=== PATIENT | female | born 2000 | race Caucasian/White ===

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

== ENCOUNTER → 2020-01-13 | Outpatient (REF) | payer OTHER ==
[~2020-01-13] MED LIST changes: +ACET-683 PO; +IBUP80TA PO; +RANI1SYP PO
[2020-01-13 13:51] LABS: HEMATOCRIT 38.4 % (36.0-47.0); HEMOGLOBIN 12.4 g/dl (12.0-15.5); MEAN CORPUSCULAR HEMOGLOBIN 26.1 pg (27.0-33.0); MEAN CORPUSCULAR HGB CONC 32.3 g/dl (32.0-36.5); MEAN CORPUSCULAR VOLUME 80.7 fl (80.0-96.0); PLATELET COUNT, AUTOMATED 182 10^3/uL (150-450); RED BLOOD COUNT 4.76 10^6/uL (4.00-5.40); WHITE BLOOD COUNT 6.8 10^3/uL (4.0-10.0)
[2020-01-13 14:06] LABS: ALT/SGPT 18 U/L (12-78); BILIRUBIN,TOTAL 0.3 MG/DL (0.2-1.0); CREATININE FOR GFR 0.54 MG/DL (0.55-1.30); LDH LACTATE DEHYDROGENASE 140 U/L (84-246); URIC ACID 2.5 MG/DL (2.6-6.0)
[2020-01-13 14:10] LABS: CREATININE,RANDOM URINE 77.7 MG/DL; TOTAL PROTEIN,RANDOM URINE 10.9 MG/DL (0.0-12.0)
[2020-01-13 14:42] LABS: HEPATITIS C VIRUS ABY INDEX 0.1 INDEX (<0.8); HIV 1&2 SCREEN CENTAUR NEGATIVE (NEGATIVE)
== END ==
LOC: M PLALAB 11:32
PROVIDERS: ATTEND Advanced Practice Midwife
DX: Z34.91 Encounter for supervision of normal pregnancy, unspecified, first trimester (principal)

== ENCOUNTER → 2020-03-23 | Outpatient (CLI) | payer BC ==
--- NOTE | 2020-03-24 09:00 | REP ---
INDICATION: ANATOMY COMPARISON: None. TECHNIQUE: Transabdominal obstetrical ultrasound with color Doppler evaluation. FINDINGS: Examination demonstrates a single live intrauterine in variable presentation. motion is identified by technologist. Placenta is noted posterior and grade 1 without evidence for placenta previa or abruption. Amniotic fluid volume is normal. Cervix measures 4.0 cm in length and appears closed. Linear echogenic structure along the left side of the uterus and adjacent to the placenta may represent small uterine synechia.. Gestational age by current measurements 19 weeks 6 days with PEDRO 08/11/2020. FHR equals 149 beats per minute. BPD: 4.5 cm 19 weeks 4 days HC: 17.2 cm 19 weeks 5 days AC: 14.6 cm there is 19 weeks 6 days FL: 3.2 cm 19 weeks 6 days HL: 3.1 cm 20 weeks 2 days HC/AC: 1.18 Estimated weight 317 grams (11thpercentile). Anatomical assessment demonstrates normal structures including cranium, choroid plexus, cavum, cerebellum/posterior fossa, facial features, lungs, four-chamber heart/ventricular outflow tracts, diaphragm, stomach, cord insertion/three-vessel cord, kidneys/bladder, spine, and extremities. IMPRESSION: Single live intrauterine in variable presentation demonstrating appropriate estimated weight. Anatomical assessment is complete and normal. Technologist raises the possibility of small uterine synechia for which follow-up may be warranted. <Electronically signed by Gilles Wall > 03/24/20 [id number]
== END ==
LOC: M WHC 13:07
PROVIDERS: ATTEND Advanced Practice Midwife
DX: O10.012 Pre-existing essential hypertension complicating pregnancy, second trimester (principal); Z3A.19 19 weeks gestation of pregnancy

== ENCOUNTER → 2020-04-20 | Outpatient (CLI) | payer BC ==
--- NOTE | 2020-04-20 09:39 | REP ---
INDICATION: HYPERTENSION,GROWTH,VALERIY COMPARISON: 03/23/2020 TECHNIQUE: Transabdominal obstetrical ultrasound with color Doppler evaluation. FINDINGS: Examination demonstrates a single live intrauterine in cephalic presentation. motion is identified by technologist. Placenta is noted posterior and grade 1 without evidence for placenta previa or abruption. Amniotic fluid volume is normal. Cervix measures 3.8 cm in length and appears closed.. Gestational age by LMP 24 weeks 5 days with PEDRO 08/05/2020. Gestational age by current measurements 23 weeks 6 days with PEDRO 08/11/2020. FHR equals 144 beats per minute. BPD: 5.8 cm 23 weeks 6 days HC: 21.8 cm 23 weeks 6 days AC: 18.7 cm 23 weeks 3 days FL: 4.3 cm 24 weeks 1 day HL: 4.0 cm 24 weeks 1 day HC/AC: 1.17 Estimated weight 625 grams (10thpercentile). IMPRESSION: Single live intrauterine in cephalic presentation with normal interval growth and estimated weight. <Electronically signed by Gilles Wall > 04/20/20 [id number]
== END ==
LOC: M WHC 08:51
PROVIDERS: ATTEND Advanced Practice Midwife
DX: O10.012 Pre-existing essential hypertension complicating pregnancy, second trimester (principal)

== ENCOUNTER → 2020-05-06 | Outpatient (REF) | payer OTHER ==
[2020-05-06 13:21] LABS: HEMATOCRIT 35.5 % (36.0-47.0); HEMOGLOBIN 11.2 g/dl (12.0-15.5); MEAN CORPUSCULAR HEMOGLOBIN 26.4 pg (27.0-33.0); MEAN CORPUSCULAR HGB CONC 31.5 g/dl (32.0-36.5); MEAN CORPUSCULAR VOLUME 83.5 fl (80.0-96.0); PLATELET COUNT, AUTOMATED 204 10^3/uL (150-450); RED BLOOD COUNT 4.25 10^6/uL (4.00-5.40); WHITE BLOOD COUNT 8.3 10^3/uL (4.0-10.0)
== END ==
LOC: M PLALAB 09:54
PROVIDERS: ATTEND Advanced Practice Midwife
DX: O10.012 Pre-existing essential hypertension complicating pregnancy, second trimester (principal)

== ENCOUNTER → 2020-05-21 | Outpatient (CLI) | payer BC ==
--- NOTE | 2020-05-21 18:12 | REP ---
INDICATION: HYPERTENSION,GROWTH. growth study. PEDRO August 05, 2020. COMPARISON: Comparison exam April 20, 2020.. TECHNIQUE: Transabdominal obstetric sonography. FINDINGS: Scanning through the gravid uterus demonstrates a viable single intrauterine gestation in cephalic lie. motion is observed and heart rate is recorded at 144 beats per minute. A posterior placenta is seen, grade 2, without evidence of placenta previa. Closed cervical length is measured at 3.2 cm transabdominally. No extrauterine abnormality is observed. Amniotic fluid is subjectively normal. VALERIY is normal at 14.8 cm.. . Biometry chart: BPD 7.1 cm, 28 weeks 3 days Head circumference 26.9 cm, 29 weeks 3 days Abdominal circumference 24.6 cm, 28 weeks 6 days Femur length 5.3 cm, 28 weeks 0 days Humeral length 4.6 cm, 27 weeks 0 days HC AC ratio normal 1.09 Cephalic index normal 0.72 Estimated weight 1250 g, 2 lb 12 oz, 20th percentile for 29 weeks 1 day IMPRESSION: Viable single intrauterine gestation at 28 weeks 2 days by today's composite sonographic criteria. PEDRO by today's sonography August 11, 2020. No complication identified. Expected gestational age estimate based on PEDRO of August 05, 2020 is 29 weeks 1 day. Appropriate interval growth. <Electronically signed by Luke Villatoro > 05/21/20 [id number]
== END ==
LOC: M WHC 10:58
PROVIDERS: ATTEND Advanced Practice Midwife
DX: O10.013 Pre-existing essential hypertension complicating pregnancy, third trimester (principal)

== ENCOUNTER 2020-06-01 19:30 | Outpatient (CLI) | payer BC ==
[~2020-06-01] VITALS: Ht 157.5 cm; Wt 85.1 kg
[2020-06-01 19:52] VITALS: BP 138/85
[2020-06-01] MEDS ORDERED: BABY ASP (20:07)
[2020-06-01] MEDS ORDERED: LABE200T32 PO (20:07)
[2020-06-01] MEDS ORDERED: asprin (20:07)
[2020-06-01 20:31] LABS: HEMATOCRIT 33.3 % (36.0-47.0); HEMOGLOBIN 10.6 g/dl (12.0-15.5); MEAN CORPUSCULAR HEMOGLOBIN 25.1 pg (27.0-33.0); MEAN CORPUSCULAR HGB CONC 31.8 g/dl (32.0-36.5); MEAN CORPUSCULAR VOLUME 78.9 fl (80.0-96.0); PLATELET COUNT, AUTOMATED 196 10^3/uL (150-450); RED BLOOD COUNT 4.22 10^6/uL (4.00-5.40); WHITE BLOOD COUNT 8.5 10^3/uL (4.0-10.0)
[2020-06-01 20:57] LABS: TOTAL PROTEIN,RANDOM URINE 24.4 MG/DL (0.0-12.0)
[2020-06-01 20:59] LABS: ALT/SGPT 25 U/L (12-78); BILIRUBIN,TOTAL 0.4 MG/DL (0.2-1.0); CREATININE FOR GFR 0.46 MG/DL (0.55-1.30); GLOMERULAR FILTRATION RATE > 60.0 (>60); LDH LACTATE DEHYDROGENASE 206 U/L (84-246)
--- NOTE | 2020-06-01 21:15 | IPNPDOC ---
Obstetrical Progress Note Date of Service Jun 01, 2020 Subjective 20 yo at 30 5/7 weeks presents feeling dizzy and seeing spots today. She was at work. Her is significant for HTN, for which she takes Labetalol. Objective Vital Signs Date Time Temp Pulse Resp B/P (MAP) Pulse Ox O2 Delivery O2 Flow Rate FiO2 06/01/20 19:52 97.8 103 18 138/85 (102) Assessment Variability: Moderate Accelerations: Positive Decelerations: None Heart Rate Tracing: Category I Tocometer Contractions: No Assessment and Plan Status: Reassuring Additional Comments 20 yo at 30 5/7 weeks with HTN, no evidence of preeclampsia Continue Labetalol 200 mg BID Pt may need to stop work sooner than she expected due to HTN Keep office appt on 06/03/20 RICK HALL MD Jun 01, 2020 21:15
== END 2020-06-01 21:20 | disposition home or self-care (01) ==
LOC: M LDO 19:30
PROVIDERS: ATTEND Specialist
DX: O13.3 Gestational [pregnancy-induced] hypertension without significant proteinuria, third trimester (principal); R51.9 Headache, unspecified; R42 Dizziness and giddiness; Z3A.30 30 weeks gestation of pregnancy
CPT/HCPCS: 36415; 59025; 82247; 82565; 82570; 83615; 84156; 84450; 84460; 84550; 85027; G0378; G0463

== ENCOUNTER → 2020-06-18 | Outpatient (CLI) | payer BC ==
[~2020-06-18] MED LIST changes: +BABY ASP; +asprin
--- NOTE | 2020-06-18 12:19 | REP ---
INDICATION: HYPERTENSION,GROWTH. PEDRO August 05, 2020. COMPARISON: Comparison study May 21, 2020.. TECHNIQUE: Transabdominal obstetric sonography. FINDINGS: Scanning through the gravid uterus demonstrates a viable single intrauterine gestation in cephalic lie. motion is observed and heart rate is recorded at 126 beats per minute. A posterior placenta is seen, grade 3, without evidence of placenta previa. Closed cervical length is measured at 3.5 cm transabdominally. No extrauterine abnormality is observed. Amniotic fluid is subjectively normal. VALERIY is normal at 17.6 cm.. anatomic survey is not performed with this exam.. Biometry chart: BPD 8.1 cm, 32 weeks 3 days Head circumference 29.9 cm, 33 weeks 1 day Abdominal circumference 28.5 cm, 32 weeks 4 days Femur length 6.4 cm, 32 weeks 6 days Humeral length 5.3 cm, 30 weeks 5 days HC AC ratio normal 1.05 Cephalic index normal 0.75 Estimated weight 2028 g, 4 lb 7 oz, 28th percentile for 33 weeks 1 day IMPRESSION: Viable single intrauterine gestation at 32 weeks 2 days by today's composite sonographic criteria. PEDRO by today's sonography August 11, 2020. No complication identified. Expected gestational age estimate based on prior sonography is 33 weeks 1 day. PEDRO by prior sonography August 05, 2020. Appropriate interval growth. <Electronically signed by Luke Villatoro > 06/18/20 [id number]
== END ==
LOC: M WHC 10:51
PROVIDERS: ATTEND Advanced Practice Midwife
DX: O10.012 Pre-existing essential hypertension complicating pregnancy, second trimester (principal); Z3A.32 32 weeks gestation of pregnancy

== ENCOUNTER → 2021-09-06 | Outpatient (REF) | payer OTHER ==
[~2021-09-06] MED LIST changes: +LABE200T3 PO; -LABE200T32 PO
[2021-09-06 15:49] LABS: GC DNA AMPLIFICATION NEGATIVE (NEGATIVE)
== END ==
LOC: M SFHCWAGY 13:38 → EDUNIT# 13:38
PROVIDERS: ATTEND Obstetrics & Gynecology
DX: Z12.4 Encounter for screening for malignant neoplasm of cervix (principal)
CPT/HCPCS: 87661; 87810; 87850; G0123

== ENCOUNTER 2022-04-05 10:23 | Emergency (ER) | payer BC, OTHER ==
[~2022-04-05] VITALS: Ht 157.5 cm; Wt 62.9 kg
[~2022-04-05 10:23] MED LIST changes: -LABE200T3 PO; +LABE200T5 PO
[2022-04-05 12:06] LABS: BASO % 0.5 % (0.0-1.0); EOS % 0.4 % (0.0-3.0); HEMATOCRIT 44.2 % (36.0-47.0); HEMOGLOBIN 13.8 g/dl (12.0-15.5); LYMPH # 1.2 10^3/uL (1.5-5.0); LYMPH % 22.1 % (24.0-44.0); MEAN CORPUSCULAR HEMOGLOBIN 25.8 pg (27.0-33.0); MEAN CORPUSCULAR HGB CONC 31.2 g/dl (32.0-36.5); MEAN CORPUSCULAR VOLUME 82.8 fl (80.0-96.0); MONO # 0.5 10^3/uL (0.0-0.8); MONO % 8.5 % (2.0-8.0); NEUTROPHILS # 3.8 10^3/uL (1.5-8.5); NEUTROPHILS % 68.3 % (36.0-66.0); PLATELET COUNT, AUTOMATED 168 10^3/uL (150-450); RED BLOOD COUNT 5.34 10^6/uL (4.00-5.40); WHITE BLOOD COUNT 5.5 10^3/uL (4.0-10.0)
[2022-04-05 12:47] LABS: LIPASE 50 U/L (12-53)
[2022-04-05 12:49] LABS: ALBUMIN 4.3 G/DL (3.2-5.2); ALKALINE PHOSPHATASE 63 U/L (46-116); ALT/SGPT 15 U/L (7.0-40); AST/SGOT 17 U/L (<34); BILIRUBIN,DIRECT 0.1 MG/DL (<0.4); BILIRUBIN,TOTAL 0.3 MG/DL (0.3-1.2); BLOOD UREA NITROGEN 7 MG/DL (9-23); CALCIUM LEVEL 9.3 MG/DL (8.5-10.1); CARBON DIOXIDE LEVEL 28 MMOL/L (20-31); CHLORIDE LEVEL 107 MMOL/L (98-107); GLOMERULAR FILTRATION RATE > 60.0 (>60); GLUCOSE, FASTING 95 MG/DL (60-100); POTASSIUM SERUM 4.4 MMOL/L (3.5-5.1); SODIUM LEVEL 141 MMOL/L (136-145); TOTAL PROTEIN 7.3 G/DL (5.7-8.2)
[2022-04-05 12:56] LABS: HCG, SERUM QUALITATIVE NEGATIVE (NEGATIVE)
[2022-04-05] MEDS ORDERED: NS 1,000 ML IV ONE (17:00)
[2022-04-05] MEDS ORDERED: ISOVUE-370 76% 100ML VIAL As Ordered ONE (17:03)
[2022-04-05] MEDS ORDERED: KETOROLAC 30 MG/ML 1ML VIAL IV ONE (17:45)
[2022-04-05] MEDS ORDERED: ONDANSETRON 4MG 2ML VIAL IV ONE (17:45)
[2022-04-05] MEDS ORDERED: AMOX875T2 PO (18:14)
[2022-04-05] MEDS ORDERED: ONDA4TAB6 PO (18:15)
[2022-04-05 18:29] VITALS: BP 136/83
== END 2022-04-05 19:02 | disposition home or self-care (01) ==
LOC: M ED 10:23
DX: K50.90 Crohn's disease, unspecified, without complications (principal); K59.00 Constipation, unspecified; Z88.9 Allergy status to unspecified drugs, medicaments and biological substances; Z91.030 Bee allergy status; Z91.040 Latex allergy status; Z91.048 Other nonmedicinal substance allergy status; Z79.2 Long term (current) use of antibiotics; Z79.810 Long term (current) use of selective estrogen receptor modulators (SERMs); Z79.899 Other long term (current) drug therapy

== ENCOUNTER 2022-06-07 08:32 | Day surgery (SDC) | payer BC, OTHER ==
[~2022-06-07] VITALS: Ht 154.9 cm; Wt 61.6 kg
[~2022-06-07 08:32] MED LIST changes: +ALBU6.7H6 INH; +AMOX875T2 PO; +EPIP0.3I2 IM; +LIDOCAINE 2% 100MG/5ML SDV (FOR ANES.) As Ordered ONE; +NS 1,000 ML IV ONE; +propofoL 200 MG/20 ML VIAL As Ordered ONE
[2022-06-07] MEDS ORDERED: propofoL 200 MG/20 ML VIAL As Ordered ONE (09:43)
[2022-06-07 09:50] VITALS: BP 120/69
== END 2022-06-07 10:00 | disposition home or self-care (01) ==
LOC: M OPP 08:32
PROVIDERS: ATTEND Surgery
DX: K63.89 Other specified diseases of intestine (principal); K59.00 Constipation, unspecified; J45.909 Unspecified asthma, uncomplicated; Z79.3 Long term (current) use of hormonal contraceptives; Z79.51 Long term (current) use of inhaled steroids; Z91.030 Bee allergy status; Z91.048 Other nonmedicinal substance allergy status

== ENCOUNTER 2023-04-01 12:03 | Emergency (ER) | payer BC, OTHER ==
[~2023-04-01] VITALS: Ht 157.5 cm; Wt 56.9 kg
[~2023-04-01 12:03] MED LIST changes: -LIDOCAINE 2% 100MG/5ML SDV (FOR ANES.) As Ordered ONE; -NS 1,000 ML IV ONE; -propofoL 200 MG/20 ML VIAL As Ordered ONE
[2023-04-01] MEDS ORDERED: NS 1,000 ML IV ONE (12:35)
[2023-04-01] MEDS ORDERED: METOCLOPRAMIDE INJ 10MG/2ML VIAL IV ONE (12:35)
[2023-04-01 12:47] LABS: BASO % 0.2 % (0.0-1.0); HEMOGLOBIN 13.6 g/dl (12.0-15.5); LYMPH # 0.9 10^3/uL (1.5-5.0); LYMPH % 11.2 % (24.0-44.0); MEAN CORPUSCULAR HEMOGLOBIN 25.8 pg (27.0-33.0); MEAN CORPUSCULAR HGB CONC 32.4 g/dl (32.0-36.5); MEAN CORPUSCULAR VOLUME 79.7 fl (80.0-96.0); MONO # 0.4 10^3/uL (0.0-0.8); MONO % 4.6 % (2.0-8.0); NEUTROPHILS # 6.8 10^3/uL (1.5-8.5); NEUTROPHILS % 83.8 % (36.0-66.0); PLATELET COUNT, AUTOMATED 224 10^3/uL (150-450); RED BLOOD COUNT 5.27 10^6/uL (4.00-5.40); WHITE BLOOD COUNT 8.1 10^3/uL (4.0-10.0)
[2023-04-01 13:11] LABS: ALBUMIN 4.6 G/DL (3.2-5.2); BILIRUBIN,DIRECT 0.2 MG/DL (<0.4); BILIRUBIN,TOTAL 0.5 MG/DL (0.3-1.2); TOTAL PROTEIN 7.4 G/DL (5.7-8.2)
[2023-04-01] MEDS ORDERED: METO5TAB2 PO (14:16)
[2023-04-01] MEDS ORDERED: DICY-61 PO (14:16)
[2023-04-01] MEDS ORDERED: DICYCLOMINE 10 MG CAP PO ONE (14:20)
[2023-04-01 14:26] VITALS: BP 112/66; TEMP 97.6; O2SAT 98
== END 2023-04-01 14:29 | disposition home or self-care (01) ==
LOC: M ED 12:03
DX: R10.9 Unspecified abdominal pain (principal); R11.2 Nausea with vomiting, unspecified; J45.909 Unspecified asthma, uncomplicated; Z91.030 Bee allergy status; Z91.048 Other nonmedicinal substance allergy status
CPT/HCPCS: 74018; 80047; 80076; 81001; 83690; 84702; 85025; 96361; 96374; 99284; J2765

== ENCOUNTER → 2023-06-05 | Outpatient (REF) | payer OTHER ==
[~2023-06-05] MED LIST changes: +DICY-61 PO; +METO5TAB2 PO
[2023-06-05 16:34] LABS: Trichomonas vaginalis (AMP) NOT DETECTED (NEGATIVE)
[2023-06-05 16:58] LABS: GC DNA AMPLIFICATION NEGATIVE (NEGATIVE)
== END ==
LOC: M SFHCWAGY 14:57
PROVIDERS: ATTEND Obstetrics & Gynecology
DX: N92.6 Irregular menstruation, unspecified (principal)

== ENCOUNTER 2023-06-24 13:46 | Emergency (ER) | payer BC, OTHER ==
[~2023-06-24] VITALS: Ht 157.5 cm; Wt 59.3 kg
[2023-06-24] MEDS: NAPROXEN 250 MG TAB PO ONE (15:43)
[2023-06-24 16:17] VITALS: BP 117/75; TEMP 97.4; O2SAT 100
== END 2023-06-24 16:19 | disposition home or self-care (01) ==
LOC: M ED 13:46
DX: S63.501A Unspecified sprain of right wrist, initial encounter (principal); S60.211A Contusion of right wrist, initial encounter; S60.212A Contusion of left wrist, initial encounter; W01.0XXA Fall on same level from slipping, tripping and stumbling without subsequent striking against object, initial encounter; Y92.009 Unspecified place in unspecified non-institutional (private) residence as the place of occurrence of the external cause; Y93.89 Activity, other specified; Y99.9 Unspecified external cause status; I10 Essential (primary) hypertension; F17.290 Nicotine dependence, other tobacco product, uncomplicated

== ENCOUNTER 2023-09-03 12:11 | Emergency (ER) | payer BC, SELFPAY ==
[~2023-09-03] VITALS: Ht 154.9 cm; Wt 58.5 kg
[~2023-09-03 12:11] MED LIST changes: +ONDA-282 PO; -ONDA4TAB6 PO
[2023-09-03] MEDS ORDERED: LEXA1TAB2 (12:20)
[2023-09-03] MEDS ORDERED: ARIP1TAB6 (12:20)
[2023-09-03] MEDS ORDERED: PSEU30TA87 PO (13:26)
[2023-09-03] MEDS ORDERED: OXYM15SP2 (13:26)
[2023-09-03] MEDS ORDERED: IBUP-1022 PO (13:26)
[2023-09-03 13:32] VITALS: BP 107/79; TEMP 97.2; O2SAT 99
== END 2023-09-03 13:34 | disposition home or self-care (01) ==
LOC: M ED 12:11
DX: H92.03 Otalgia, bilateral (principal); H65.02 Acute serous otitis media, left ear; J45.909 Unspecified asthma, uncomplicated; I10 Essential (primary) hypertension; F41.9 Anxiety disorder, unspecified; Z91.030 Bee allergy status; Z91.048 Other nonmedicinal substance allergy status; Z79.2 Long term (current) use of antibiotics; Z79.899 Other long term (current) drug therapy

== ENCOUNTER 2023-11-24 10:48 | Emergency (ER) | payer BC, SELFPAY ==
[~2023-11-24] VITALS: Ht 157.5 cm; Wt 63.3 kg
[~2023-11-24 10:48] MED LIST changes: +ARIP1TAB6; +LEXA1TAB2; +OXYM15SP2; +PSEU30TA87 PO
[2023-11-24 11:59] LABS: BASO % 0.6 % (0.0-1.0); EOS # 0.1 10^3/uL (0.0-0.5); EOS % 1.1 % (0.0-3.0); HEMATOCRIT 39.1 % (36.0-47.0); HEMOGLOBIN 12.2 g/dl (12.0-15.5); LYMPH # 1.7 10^3/uL (1.5-5.0); MEAN CORPUSCULAR HEMOGLOBIN 24.4 pg (27.0-33.0); MEAN CORPUSCULAR HGB CONC 31.2 g/dl (32.0-36.5); MEAN CORPUSCULAR VOLUME 78.4 fl (80.0-96.0); MONO # 0.5 10^3/uL (0.0-0.8); MONO % 9.5 % (2.0-8.0); NEUTROPHILS # 3.1 10^3/uL (1.5-8.5); NEUTROPHILS % 56.8 % (36.0-66.0); PLATELET COUNT, AUTOMATED 184 10^3/uL (150-450); RED BLOOD COUNT 4.99 10^6/uL (4.00-5.40); WHITE BLOOD COUNT 5.4 10^3/uL (4.0-10.0)
[2023-11-24 12:42] LABS: ALBUMIN 4.3 G/DL (3.2-5.2); BILIRUBIN,DIRECT 0.1 MG/DL (<0.4); BILIRUBIN,TOTAL 0.4 MG/DL (0.3-1.2); TOTAL PROTEIN 7.2 G/DL (5.7-8.2)
[2023-11-24 12:59] LABS: HCG, SERUM QUANTITATIVE 2125.5 MIU/ML (<4.2)
[2023-11-24] MEDS: NS 1,000 ML IV ONE (13:34)
[2023-11-24] MEDS: ACETAMINOPHEN *IV* 1,000 MG in IV 1 EA IV ONE (13:34)
[2023-11-24] MEDS: ONDANSETRON 4MG 2ML VIAL IV ONE (13:35)
[2023-11-24 16:19] LABS: Trichomonas vaginalis (AMP) NOT DETECTED (NEGATIVE)
[2023-11-24 16:43] LABS: GC DNA AMPLIFICATION NEGATIVE (NEGATIVE)
[2023-11-24] MEDS ORDERED: CEPH500C PO (16:57)
[2023-11-24] MEDS ORDERED: MONI4CRE3 PV (16:57)
[2023-11-24 17:38] VITALS: BP 110/73; TEMP 97.6; O2SAT 98
== END 2023-11-24 17:40 | disposition home or self-care (01) ==
LOC: M ED 10:48
DX: N30.00 Acute cystitis without hematuria (principal); N76.0 Acute vaginitis; F31.9 Bipolar disorder, unspecified; F41.0 Panic disorder [episodic paroxysmal anxiety]; Z91.030 Bee allergy status; Z91.048 Other nonmedicinal substance allergy status; Z79.2 Long term (current) use of antibiotics; Z79.899 Other long term (current) drug therapy
CPT/HCPCS: 36415; 80047; 80076; 81001; 83690; 84702; 85025; 87086; 87210; 87486; 87581; 87633; 87661; 87798; 87810; 87850; 96374; 96375; 99284; J0131; J2405

== ENCOUNTER → 2023-12-24 | Outpatient (REF) | payer BC ==
[~2023-12-24] MED LIST changes: +CEPH500C PO; +MONI4CRE3 PV
== END ==
LOC: M PLALAB 14:26
PROVIDERS: ATTEND Advanced Practice Midwife
DX: Z34.81 Encounter for supervision of other normal pregnancy, first trimester (principal); Z53.9 Procedure and treatment not carried out, unspecified reason

== ENCOUNTER → 2024-01-23 | Outpatient (CLI) | payer BC ==
[2024-01-23 13:36] LABS: HEMATOCRIT 34.9 % (36.0-47.0); MEAN CORPUSCULAR HEMOGLOBIN 24.3 pg (27.0-33.0); MEAN CORPUSCULAR HGB CONC 31.5 g/dl (32.0-36.5); MEAN CORPUSCULAR VOLUME 77.2 fl (80.0-96.0); PLATELET COUNT, AUTOMATED 187 10^3/uL (150-450); RED BLOOD COUNT 4.52 10^6/uL (4.00-5.40); WHITE BLOOD COUNT 6.4 10^3/uL (4.0-10.0)
[2024-01-23 13:53] LABS: URIC ACID 2.6 MG/DL (3.1-7.8)
[2024-01-23 13:55] LABS: LDH LACTATE DEHYDROGENASE 129 U/L (120-246)
[2024-01-23 13:57] LABS: ALT/SGPT 13 U/L (7.0-40); AST/SGOT < 8 U/L (<34); BILIRUBIN,TOTAL 0.3 MG/DL (0.3-1.2); CREATININE FOR GFR 0.52 MG/DL (0.55-1.30); GLOMERULAR FILTRATION RATE > 60.0 (>60)
[2024-01-23 14:34] LABS: CREATININE,RANDOM URINE 97.4 MG/DL
[2024-01-23 15:26] LABS: GC DNA AMPLIFICATION NEGATIVE (NEGATIVE); TOTAL PROTEIN,RANDOM URINE 17.9 MG/DL (0.0-14.0)
[2024-01-23 16:30] LABS: HIV 1&2 SCREEN NEGATIVE (NEGATIVE)
[2024-01-23 17:45] LABS: HEPATITIS C VIRUS ABY INDEX < 0.02 INDEX (<0.8)
== END ==
LOC: M PLALAB 10:10
PROVIDERS: ATTEND Advanced Practice Midwife
DX: Z34.81 Encounter for supervision of other normal pregnancy, first trimester (principal)

== ENCOUNTER 2024-02-17 19:23 | Emergency (ER) | payer BC ==
[~2024-02-17] VITALS: Ht 162.6 cm; Wt 69.5 kg
[2024-02-17 21:29] LABS: BASO % 0.2 % (0.0-1.0); EOS % 0.5 % (0.0-3.0); HEMATOCRIT 33.7 % (36.0-47.0); HEMOGLOBIN 10.9 g/dl (12.0-15.5); LYMPH # 1.6 10^3/uL (1.5-5.0); LYMPH % 25.5 % (24.0-44.0); MEAN CORPUSCULAR HEMOGLOBIN 24.9 pg (27.0-33.0); MEAN CORPUSCULAR HGB CONC 32.3 g/dl (32.0-36.5); MEAN CORPUSCULAR VOLUME 76.9 fl (80.0-96.0); MONO # 0.6 10^3/uL (0.0-0.8); MONO % 9.2 % (2.0-8.0); NEUTROPHILS # 3.9 10^3/uL (1.5-8.5); NEUTROPHILS % 64.3 % (36.0-66.0); PLATELET COUNT, AUTOMATED 185 10^3/uL (150-450); RED BLOOD COUNT 4.38 10^6/uL (4.00-5.40); WHITE BLOOD COUNT 6.1 10^3/uL (4.0-10.0)
[2024-02-17] MEDS: ACETAMINOPHEN *IV* 1,000 MG in IV 1 EA IV ONE (21:31)
[2024-02-17] MEDS: METOCLOPRAMIDE INJ 10MG/2ML VIAL IV ONE (21:31)
[2024-02-17] MEDS: NS 500 ML IV ONE (21:31)
[2024-02-17 21:53] LABS: ALBUMIN 3.2 G/DL (3.2-5.2); ALKALINE PHOSPHATASE 58 U/L (35-104); ALT/SGPT < 9 U/L (7.0-40); AST/SGOT 14 U/L (<34); BILIRUBIN,DIRECT < 0.1 MG/DL (<0.4); BILIRUBIN,TOTAL 0.3 MG/DL (0.3-1.2); TOTAL PROTEIN 6.3 G/DL (5.7-8.2)
[2024-02-17 22:07] LABS: HCG, SERUM QUANTITATIVE 12024.9 MIU/ML (<4.2)
[2024-02-17 23:18] VITALS: BP 112/72; TEMP 97.5; O2SAT 98
== END 2024-02-17 23:18 | disposition home or self-care (01) ==
LOC: M ED 19:23
DX: O21.9 Vomiting of pregnancy, unspecified (principal); O99.352 Diseases of the nervous system complicating pregnancy, second trimester; R51.9 Headache, unspecified; I10 Essential (primary) hypertension; J45.909 Unspecified asthma, uncomplicated; Z91.030 Bee allergy status; Z88.8 Allergy status to other drugs, medicaments and biological substances; Z91.048 Other nonmedicinal substance allergy status; Z79.1 Long term (current) use of non-steroidal anti-inflammatories (NSAID); Z79.899 Other long term (current) drug therapy; Z3A.17 17 weeks gestation of pregnancy
CPT/HCPCS: 80047; 80076; 81001; 84702; 85025; 87086; 87486; 87581; 87633; 87798; 93041; 94760; 96365; 96375; 99284; J0131; J2765

== ENCOUNTER → 2024-03-17 | Outpatient (CLI) | payer BC | LOC: M RAD 06:33 | PROVIDERS: ATTEND Nurse Practitioner Family | DX: O10.012 Pre-existing essential hypertension complicating pregnancy, second trimester (principal); Z3A.21 21 weeks gestation of pregnancy; O32.2XX0 Maternal care for transverse and oblique lie, not applicable or unspecified; O28.3 Abnormal ultrasonic finding on antenatal screening of mother ==

== ENCOUNTER → 2024-04-22 | Outpatient (CLI) | payer BC ==
[2024-04-22 15:03] LABS: HEMATOCRIT 32.8 % (36.0-47.0); HEMOGLOBIN 10.2 g/dl (12.0-15.5); MEAN CORPUSCULAR HEMOGLOBIN 24.1 pg (27.0-33.0); MEAN CORPUSCULAR HGB CONC 31.1 g/dl (32.0-36.5); MEAN CORPUSCULAR VOLUME 77.5 fl (80.0-96.0); PLATELET COUNT, AUTOMATED 211 10^3/uL (150-450); RED BLOOD COUNT 4.23 10^6/uL (4.00-5.40); WHITE BLOOD COUNT 9.4 10^3/uL (4.0-10.0)
[2024-04-22 15:04] LABS: GLUCOSE CHALLENGE TEST 1 HOUR 99 MG/DL (LESS THAN 140)
[2024-04-22 15:40] LABS: HIV 1&2 SCREEN NEGATIVE (NEGATIVE)
[2024-04-22 15:48] LABS: HEPATITIS C VIRUS ABY INDEX 0.15 INDEX (<0.8)
[2024-04-22 17:10] LABS: GC DNA AMPLIFICATION NEGATIVE (NEGATIVE)
== END ==
LOC: M PLALAB 11:16
PROVIDERS: ATTEND Nurse Practitioner Family
DX: Z34.80 Encounter for supervision of other normal pregnancy, unspecified trimester (principal)

== ENCOUNTER 2024-04-30 15:42 | Outpatient (CLI) | payer BC ==
[~2024-04-30] VITALS: Ht 157.5 cm; Wt 77.5 kg
[2024-04-30] MEDS ORDERED: METO10TA3 PO (16:05)
[2024-04-30] MEDS ORDERED: ASPI-655 PO (16:05)
[2024-04-30] MEDS ORDERED: HOME MED LIST COMPLETE! XX SCH (16:05)
[2024-04-30 16:07] VITALS: BP 119/66
[2024-04-30 16:23] VITALS: BP 118/77
[2024-04-30] MEDS: LR 1,000 ML IV SCH (16:54)
[2024-04-30 16:59] VITALS: BP 120/70
[2024-04-30] MEDS: ONDANSETRON 4MG 2ML VIAL IV ONE (17:16)
[2024-04-30 17:22] LABS: HEMATOCRIT 30.8 % (36.0-47.0); HEMOGLOBIN 9.9 g/dl (12.0-15.5); MEAN CORPUSCULAR HEMOGLOBIN 24.4 pg (27.0-33.0); MEAN CORPUSCULAR HGB CONC 32.1 g/dl (32.0-36.5); MEAN CORPUSCULAR VOLUME 75.9 fl (80.0-96.0); PLATELET COUNT, AUTOMATED 177 10^3/uL (150-450); RED BLOOD COUNT 4.06 10^6/uL (4.00-5.40); WHITE BLOOD COUNT 7.6 10^3/uL (4.0-10.0)
[2024-04-30 17:33] LABS: TOTAL PROTEIN,RANDOM URINE 31.8 MG/DL (0.0-14.0)
[2024-04-30 17:49] LABS: LDH LACTATE DEHYDROGENASE 165 U/L (120-246)
[2024-04-30 17:51] LABS: ALT/SGPT 18 U/L (7.0-40); AST/SGOT 17 U/L (<34); BILIRUBIN,TOTAL 0.4 MG/DL (0.3-1.2); CREATININE FOR GFR 0.43 MG/DL (0.55-1.30); GLOMERULAR FILTRATION RATE > 60.0 (>60)
== END 2024-04-30 19:05 | disposition home or self-care (01) ==
LOC: M LDO 15:42
PROVIDERS: ATTEND Advanced Practice Midwife
DX: O10.013 Pre-existing essential hypertension complicating pregnancy, third trimester (principal); O36.5990 Maternal care for other known or suspected poor fetal growth, unspecified trimester, not applicable or unspecified; O99.343 Other mental disorders complicating pregnancy, third trimester; O99.013 Anemia complicating pregnancy, third trimester; O99.353 Diseases of the nervous system complicating pregnancy, third trimester; G43.009 Migraine without aura, not intractable, without status migrainosus; F31.9 Bipolar disorder, unspecified; D50.9 Iron deficiency anemia, unspecified; Z3A.28 28 weeks gestation of pregnancy; Z87.59 Personal history of other complications of pregnancy, childbirth and the puerperium; Z79.82 Long term (current) use of aspirin
CPT/HCPCS: 59025; 82247; 82570; 83615; 84156; 84450; 84460; 84550; 85027; 86762; 86777; 86778; 86780; 87799; 96374; G0463; J2405

== ENCOUNTER 2024-05-04 23:13 | Outpatient (CLI) | payer BC ==
[~2024-05-04] VITALS: Ht 157.5 cm; Wt 78.3 kg
[~2024-05-04 23:13] MED LIST changes: +ASPI-655 PO; +METO10TA3 PO
[2024-05-04 23:29] VITALS: BP 130/84; O2SAT 96
[2024-05-04] MEDS ORDERED: CITA20TA6 PO (23:44)
[2024-05-04] MEDS ORDERED: IRON65TA2 PO (23:45)
[2024-05-04] MEDS ORDERED: IBUP-1022 PO (23:47)
[2024-05-04] MEDS ORDERED: HOME MED LIST COMPLETE! XX SCH (23:50)
[2024-05-05 00:26] LABS: KETONE, URINE AUTO RFX NEGATIVE (NEGATIVE); MUCUS, URINE RFX SMALL (NEGATIVE); NITRITE, URINE AUTO RFX NEGATIVE (NEGATIVE); RBC, URINE AUTO RFX 14 /HPF (0-3); SQUAM EPITHELIAL CELL UR AURFX 13 /HPF (0-6); WBC, URINE AUTO RFX 10 /HPF (0-3)
[2024-05-05 00:39] LABS: HEMATOCRIT 29.9 % (36.0-47.0); HEMOGLOBIN 9.5 g/dl (12.0-15.5); MEAN CORPUSCULAR HEMOGLOBIN 23.9 pg (27.0-33.0); MEAN CORPUSCULAR HGB CONC 31.8 g/dl (32.0-36.5); MEAN CORPUSCULAR VOLUME 75.3 fl (80.0-96.0); PLATELET COUNT, AUTOMATED 185 10^3/uL (150-450); RED BLOOD COUNT 3.97 10^6/uL (4.00-5.40); WHITE BLOOD COUNT 7.2 10^3/uL (4.0-10.0)
[2024-05-05 00:40] LABS: LEUKOCYTE ESTERASE UR AUTO RFX 3+ (NEGATIVE)
[2024-05-05 00:44] LABS: TOTAL PROTEIN,RANDOM URINE 36.5 MG/DL (0.0-14.0)
[2024-05-05 00:47] LABS: URIC ACID 2.6 MG/DL (3.1-7.8)
[2024-05-05 00:49] LABS: CREATININE,RANDOM URINE 132.8 MG/DL; LDH LACTATE DEHYDROGENASE 161 U/L (120-246)
[2024-05-05 00:50] LABS: ALT/SGPT 14 U/L (7.0-40); AST/SGOT 15 U/L (<34); BILIRUBIN,TOTAL 0.3 MG/DL (0.3-1.2); CREATININE FOR GFR 0.42 MG/DL (0.55-1.30); GLOMERULAR FILTRATION RATE > 60.0 (>60)
[2024-05-05 01:11] VITALS: BP 111/71
[2024-05-05 02:51] LABS: Trichomonas vaginalis (AMP) NOT DETECTED (NEGATIVE)
[2024-05-05 03:15] LABS: GC DNA AMPLIFICATION NEGATIVE (NEGATIVE)
== END 2024-05-05 01:42 | disposition home or self-care (01) ==
LOC: M LDO 23:13
PROVIDERS: ATTEND Obstetrics & Gynecology
DX: O26.893 Other specified pregnancy related conditions, third trimester (principal); O99.343 Other mental disorders complicating pregnancy, third trimester; R03.0 Elevated blood-pressure reading, without diagnosis of hypertension; N89.8 Other specified noninflammatory disorders of vagina; F31.9 Bipolar disorder, unspecified; Z87.59 Personal history of other complications of pregnancy, childbirth and the puerperium; Z3A.28 28 weeks gestation of pregnancy
CPT/HCPCS: 59025; 81001; 82247; 82570; 83615; 84156; 84450; 84460; 84550; 85027; 87086; 87210; 87661; 87810; 87850; G0463

== ENCOUNTER → 2024-05-06 | Outpatient (CLI) | payer BC ==
[~2024-05-06] MED LIST changes: +CITA20TA6 PO; +IRON65TA2 PO
== END ==
LOC: M WHC 08:20
PROVIDERS: ATTEND Nurse Practitioner Family
DX: O36.5990 Maternal care for other known or suspected poor fetal growth, unspecified trimester, not applicable or unspecified (principal); Z3A.28 28 weeks gestation of pregnancy

== ENCOUNTER 2024-05-19 13:29 | Outpatient (CLI) | payer BC ==
[~2024-05-19] VITALS: Ht 157.5 cm; Wt 76.6 kg
[2024-05-19] MEDS ORDERED: HOME MED LIST COMPLETE! XX SCH (13:40)
[2024-05-19 13:49] VITALS: BP 123/88
[2024-05-19] MEDS: LR 1,000 ML IV ONE (14:19)
[2024-05-19] MEDS: ONDANSETRON 4MG 2ML VIAL IV ONE (14:25)
[2024-05-19 14:36] LABS: BASO % 0.1 % (0.0-1.0); EOS % 0.3 % (0.0-3.0); HEMATOCRIT 32.9 % (36.0-47.0); HEMOGLOBIN 10.3 g/dl (12.0-15.5); LYMPH # 1.1 10^3/uL (1.5-5.0); LYMPH % 13.8 % (24.0-44.0); MEAN CORPUSCULAR HEMOGLOBIN 23.5 pg (27.0-33.0); MEAN CORPUSCULAR HGB CONC 31.3 g/dl (32.0-36.5); MEAN CORPUSCULAR VOLUME 75.1 fl (80.0-96.0); MONO # 0.7 10^3/uL (0.0-0.8); MONO % 8.1 % (2.0-8.0); NEUTROPHILS # 6.2 10^3/uL (1.5-8.5); NEUTROPHILS % 77.4 % (36.0-66.0); PLATELET COUNT, AUTOMATED 219 10^3/uL (150-450); RED BLOOD COUNT 4.38 10^6/uL (4.00-5.40)
[2024-05-19 14:49] VITALS: BP 122/77
[2024-05-19 14:50] LABS: AMORPHOUS SEDIMENT SMALL (NEGATIVE); APPEARANCE, URINE CLOUDY (CLEAR); BACTERIA, URINE AUTO NEGATIVE (NEGATIVE); BILIRUBIN, URINE AUTO NEGATIVE (NEGATIVE); BLOOD, URINE BLOOD 1+ (NEGATIVE); COLOR, URINE AMBER (YELLOW); GLUCOSE, URINE (UA) AUTO NEGATIVE (NEGATIVE); KETONE, URINE AUTO NEGATIVE (NEGATIVE); LEUKOCYTE ESTERASE, URINE AUTO 3+ (NEGATIVE); MUCUS, URINE MODERATE (NEGATIVE); NITRITE, URINE AUTO NEGATIVE (NEGATIVE); PROTEIN, URINE AUTO 2+ mg/dL (NEGATIVE); RBC, URINE AUTO 4 /HPF (0-3); SQUAMOUS EPITHELIAL CELL UR AU 10 /HPF (0-6); WBC, URINE AUTO 27 /HPF (0-3)
[2024-05-19 15:05] LABS: ALBUMIN 2.9 G/DL (3.2-5.2); ALKALINE PHOSPHATASE 92 U/L (35-104); ALT/SGPT 16 U/L (7.0-40); AST/SGOT 25 U/L (<34); BILIRUBIN,TOTAL 0.5 MG/DL (0.3-1.2); BLOOD UREA NITROGEN 6 MG/DL (9-23); CALCIUM LEVEL 8.4 MG/DL (8.5-10.1); CARBON DIOXIDE LEVEL 22 MMOL/L (20-31); CHLORIDE LEVEL 106 MMOL/L (98-107); CREATININE FOR GFR 0.49 MG/DL (0.55-1.30); GLOMERULAR FILTRATION RATE > 60.0 (>60); GLUCOSE, FASTING 92 MG/DL (60-100); MAGNESIUM LEVEL 1.5 MG/DL (1.8-2.4); POTASSIUM SERUM 3.5 MMOL/L (3.5-5.1); SODIUM LEVEL 141 MMOL/L (136-145); TOTAL PROTEIN 6.4 G/DL (5.7-8.2)
[2024-05-19 15:19] VITALS: BP 112/73
[2024-05-19 15:49] VITALS: BP 107/62
[2024-05-19] MEDS: MAGNESIUM OXIDE 400MG TAB (MAG-OX) PO ONE (16:11)
[2024-05-19 16:19] VITALS: BP 116/67
== END 2024-05-19 17:47 | disposition home or self-care (01) ==
LOC: M LDO 13:29
PROVIDERS: ATTEND Advanced Practice Midwife
DX: O21.8 Other vomiting complicating pregnancy (principal); O10.013 Pre-existing essential hypertension complicating pregnancy, third trimester; O36.5990 Maternal care for other known or suspected poor fetal growth, unspecified trimester, not applicable or unspecified; O99.343 Other mental disorders complicating pregnancy, third trimester; O99.353 Diseases of the nervous system complicating pregnancy, third trimester; O99.013 Anemia complicating pregnancy, third trimester; F31.9 Bipolar disorder, unspecified; D50.9 Iron deficiency anemia, unspecified; G43.909 Migraine, unspecified, not intractable, without status migrainosus; Z82.79 Family history of other congenital malformations, deformations and chromosomal abnormalities; Z3A.31 31 weeks gestation of pregnancy
CPT/HCPCS: 59025; 80053; 81001; 83735; 85025; 87070; 87077; 96360; 96361; 96374; G0463; J2405

== ENCOUNTER → 2024-06-18 | Outpatient (REF) | payer BC | LOC: M SFHCWAGY 12:41 | PROVIDERS: ATTEND Advanced Practice Midwife | DX: Z36.85 Encounter for antenatal screening for Streptococcus B (principal); Z3A.36 36 weeks gestation of pregnancy ==

== ENCOUNTER → 2024-06-20 | Outpatient (CLI) | payer BC ==
[2024-06-20 16:22] LABS: HEMOGLOBIN 10.1 g/dl (12.0-15.5); MEAN CORPUSCULAR HEMOGLOBIN 23.4 pg (27.0-33.0); MEAN CORPUSCULAR HGB CONC 30.6 g/dl (32.0-36.5); MEAN CORPUSCULAR VOLUME 76.4 fl (80.0-96.0); PLATELET COUNT, AUTOMATED 224 10^3/uL (150-450); RED BLOOD COUNT 4.32 10^6/uL (4.00-5.40); WHITE BLOOD COUNT 7.8 10^3/uL (4.0-10.0)
[2024-06-20 16:47] LABS: TOTAL PROTEIN,RANDOM URINE 15.4 MG/DL (0.0-14.0); URIC ACID 3.7 MG/DL (3.1-7.8)
[2024-06-20 16:50] LABS: LDH LACTATE DEHYDROGENASE 188 U/L (120-246)
[2024-06-20 16:51] LABS: ALT/SGPT 20 U/L (7.0-40); AST/SGOT 24 U/L (<34); BILIRUBIN,TOTAL 0.3 MG/DL (0.3-1.2); CREATININE FOR GFR 0.53 MG/DL (0.55-1.30); GLOMERULAR FILTRATION RATE > 90.0 (>60)
[2024-06-20 16:52] LABS: CREATININE,RANDOM URINE 63.4 MG/DL
[2024-06-20 16:54] LABS: FERRITIN 5.2 NG/ML (7.3-270.7)
== END ==
LOC: M PLALAB 13:46
PROVIDERS: ATTEND Nurse Practitioner Family
DX: O09.293 Supervision of pregnancy with other poor reproductive or obstetric history, third trimester (principal); Z3A.00 Weeks of gestation of pregnancy not specified; O99.013 Anemia complicating pregnancy, third trimester; D64.9 Anemia, unspecified

== ENCOUNTER 2024-06-25 08:11 | Outpatient (CLI) | payer BC ==
[~2024-06-25 08:11] MED LIST changes: +ALBUTEROL SULFATE 2.5MG/0.5ML INH CONCENTRATE NEB SOLN INH PRN; +EPINEPHrine INJ 1 MG/ML 1ML AMP IM PRN; +methylPREDNISolone 125MG 2ML VIAL IV PRN
[2024-06-25 08:15] VITALS: BP 126/83; O2SAT 97
[2024-06-25] MEDS: ACETAMINOPHEN 325 MG TAB PO ONE (08:34)
[2024-06-25] MEDS: diphenhydrAMINE 50MG/ML VIAL IV PRN (08:35)
[2024-06-25] MEDS: IRON SUCROSE 200MG/10ML VIAL IV ONE (08:35)
[2024-06-25] MEDS: diphenhydrAMINE 25MG CAP PO ONE (08:43)
[2024-06-25 09:25] VITALS: BP 138/89; O2SAT 100
== END 2024-06-25 09:30 ==
LOC: M INFU 08:11
PROVIDERS: ATTEND Advanced Practice Midwife
DX: D50.9 Iron deficiency anemia, unspecified (principal); Z91.030 Bee allergy status; Z91.018 Allergy to other foods
CPT/HCPCS: 96374; J1756

== ENCOUNTER → 2024-06-27 | Outpatient (CLI) | payer BC ==
[~2024-06-27] MED LIST changes: -ALBUTEROL SULFATE 2.5MG/0.5ML INH CONCENTRATE NEB SOLN INH PRN; -EPINEPHrine INJ 1 MG/ML 1ML AMP IM PRN; -methylPREDNISolone 125MG 2ML VIAL IV PRN
== END ==
LOC: M WHC 11:58
PROVIDERS: ATTEND Nurse Practitioner Family
DX: Z34.83 Encounter for supervision of other normal pregnancy, third trimester (principal)

== ENCOUNTER 2024-07-02 09:00 | Outpatient (CLI) | payer BC ==
[2024-07-02 09:00] VITALS: BP 140/73; O2SAT 99
[~2024-07-02 09:00] MED LIST changes: +ALBUTEROL SULFATE 2.5MG/0.5ML INH CONCENTRATE NEB SOLN INH PRN; +EPINEPHrine INJ 1 MG/ML 1ML AMP IM PRN; +diphenhydrAMINE 50MG/ML VIAL IV PRN; +methylPREDNISolone 125MG 2ML VIAL IV PRN
[2024-07-02] MEDS: ACETAMINOPHEN 650MG PO PRIOR TO INFUSION PO ONE (09:08)
[2024-07-02] MEDS: diphenhydrAMINE 25MG PO PRIOR TO INFUSION PO ONE (09:08)
[2024-07-02] MEDS: IRON SUCROSE 200MG IVP IV ONE (09:26)
[2024-07-02 10:00] VITALS: BP 132/70; O2SAT 99
== END 2024-07-02 10:00 | disposition home or self-care (01) ==
LOC: M INFU 09:00
PROVIDERS: ATTEND Advanced Practice Midwife
DX: D50.9 Iron deficiency anemia, unspecified (principal); Z91.030 Bee allergy status; Z91.09 Other allergy status, other than to drugs and biological substances
CPT/HCPCS: 96374; J1756

== ENCOUNTER 2024-07-07 13:47 | Inpatient (IN) | payer BC ==
[2024-07-07] VITALS (15 sets, daily range): BP systolic 119–138; BP diastolic 77–92
[~2024-07-07] VITALS: Ht 157.5 cm; Wt 80.0 kg
[~2024-07-07 13:47] MED LIST changes: -ALBUTEROL SULFATE 2.5MG/0.5ML INH CONCENTRATE NEB SOLN INH PRN; -EPINEPHrine INJ 1 MG/ML 1ML AMP IM PRN; -diphenhydrAMINE 50MG/ML VIAL IV PRN; -methylPREDNISolone 125MG 2ML VIAL IV PRN
[2024-07-07] MEDS ORDERED: TRANEXAMIC ACID INJection 1,000 MG in NS 100 ML IV PRN (13:55)
[2024-07-07] MEDS ORDERED: METHYLERGONOVINE MALEATE 0.2MG/ML 1ML VIAL IM PRN (13:55)
[2024-07-07] MEDS ORDERED: CARBOPROST TROMETHAMINE 250 MCG/ML AMP IM PRN (13:55)
[2024-07-07] MEDS ORDERED: OXYTOCIN INJ 10UNITS/ML 1ML VIAL IM PRN (13:55)
[2024-07-07] MEDS ORDERED: OXYTOCIN DRIP 30 UNITS in IV 1 EA IV PRN ×3 (13:55)
[2024-07-07] MEDS ORDERED: OXYTOCIN INJ 10UNITS/ML 1ML VIAL IV PRN (13:55)
[2024-07-07 14:35] LABS: HEMATOCRIT 32.9 % (36.0-47.0); HEMOGLOBIN 10.3 g/dl (12.0-15.5); MEAN CORPUSCULAR HEMOGLOBIN 23.8 pg (27.0-33.0); MEAN CORPUSCULAR HGB CONC 31.3 g/dl (32.0-36.5); PLATELET COUNT, AUTOMATED 186 10^3/uL (150-450); RED BLOOD COUNT 4.33 10^6/uL (4.00-5.40); WHITE BLOOD COUNT 6.6 10^3/uL (4.0-10.0)
[2024-07-07] MEDS: LR 1,000 ML IV ONE (14:59)
[2024-07-07] MEDS: OXYTOCIN DRIP 30 UNITS in IV 1 EA IV SCH (15:00)
[2024-07-07 15:24] LABS: HIV 1&2 SCREEN NEGATIVE (NEGATIVE)
[2024-07-07 15:31] LABS: HEPATITIS C VIRUS ABY INDEX < 0.02 INDEX (<0.8)
[2024-07-07] MEDS: LR 1,000 ML IV SCH (18:57)
[2024-07-07] MEDS ORDERED: ePHEDrine SULFATE 25 MG/5 ML(5MG/ML) SYRINGE IVP PRN (22:10)
[2024-07-07] MEDS ORDERED: FENTANYL/ROPIVACAINE/NACL BAG 100 ML EPIDURAL SCH (22:10)
[2024-07-07] MEDS ORDERED: diphenhydrAMINE 50MG/ML VIAL IV PRN (22:10)
[2024-07-07] MEDS ORDERED: LR 500 ML IV PRN (22:10)
[2024-07-07] MEDS ORDERED: NALOXONE INJ 0.4MG/1ML VIAL IV PRN (22:10)
[2024-07-07] MEDS ORDERED: EPIDURAL/PCA KEYS XX PRN (22:10)
[2024-07-07] MEDS: MORPHINE 4 MG/ML 1ML VIAL IV ONE (23:53)
[2024-07-07] MEDS: ONDANSETRON 4MG 2ML VIAL IV PRN (23:58)
[2024-07-08] VITALS (10 sets, daily range): BP systolic 109–139; BP diastolic 65–87; O2SAT 97–98
[2024-07-08] MEDS: LIDOCAINE 1% MDV 20ML VIAL INFIL PRN (01:25)
[2024-07-08] MEDS ORDERED: MOM 30ML SUSPENSION UDC PO PRN (01:35)
[2024-07-08] MEDS ORDERED: IBUPROFEN 600MG TAB PO PRN (01:35)
[2024-07-08] MEDS ORDERED: RHOGAM 300MCG (1500IU) INJ IM SCH (01:35)
[2024-07-08] MEDS ORDERED: DOCUSATE SODIUM 100MG CAPSULE PO PRN (01:35)
[2024-07-08] MEDS ORDERED: ANUSOL HC CREAM 30GM TOP PRN (01:35)
[2024-07-08] MEDS ORDERED: DIBUCAINE 1% OINTMENT 30GM TOP PRN (01:35)
[2024-07-08] MEDS ORDERED: ACETAMINOPHEN 500 MG TAB PO PRN (01:35)
[2024-07-08] MEDS: PRENATAL VITAMINS CHEWABLE TABLET PO SCH (08:53)
[2024-07-08] MEDS: IBUPROFEN 800 MG TAB PO PRN (14:43)
[2024-07-08] MEDS: ACETAMINOPHEN 325 MG TAB PO PRN (20:45)
[2024-07-09 06:00] VITALS: BP 124/81; O2SAT 100
[2024-07-10] MEDS ORDERED: MEASLES,MUMPS,RUBELLA VACCINE INJ (MMR-II) SC.IMMUN ONE (09:00)
== END 2024-07-09 11:12 | disposition home or self-care (01) | DRG 560 ==
LOC: M LDI 13:47 → M OBS 07-08 02:05
PROVIDERS: ADMIT Advanced Practice Midwife; ATTEND Advanced Practice Midwife
PROC: 3E033VJ Introduction of Other Hormone into Peripheral Vein, Percutaneous Approach (ICD-10-PCS; 2024-07-07)
PROC: 10E0XZZ Delivery of Products of Conception, External Approach (ICD-10-PCS; principal; 2024-07-08)
PROC: 10907ZC Drainage of Amniotic Fluid, Therapeutic from Products of Conception, Via Natural or Artificial Opening (ICD-10-PCS; 2024-07-08)
DX: O10.02 Pre-existing essential hypertension complicating childbirth (principal); Z37.0 Single live birth; Z3A.38 38 weeks gestation of pregnancy; F31.9 Bipolar disorder, unspecified; Z91.030 Bee allergy status; Z91.018 Allergy to other foods; Z88.8 Allergy status to other drugs, medicaments and biological substances; O99.344 Other mental disorders complicating childbirth; Z79.82 Long term (current) use of aspirin; Z79.899 Other long term (current) drug therapy

== ENCOUNTER → 2024-11-19 | Outpatient (REF) | payer BC, MEDICAID, OTHER ==
[~2024-11-19] MED LIST changes: -ASPI-655 PO; +ASPI-737 PO; -IBUP-1022 PO; +IBUP600T42 PO
== END ==
LOC: M SFHCWAGY 15:45
PROVIDERS: ATTEND Advanced Practice Midwife
DX: Z12.4 Encounter for screening for malignant neoplasm of cervix (principal); Z77.9 Other contact with and (suspected) exposures hazardous to health